=== PATIENT | female | born 1950 | race Caucasian/White ===

== ENCOUNTER → 2017-03-23 | Outpatient (CLI) | payer MEDICARE, OTHER ==
[2017-03-23 08:23] LABS: CREATININE 0.6 mg/dL (0.5-1.1); ESTIMATED GFR (MDRD EQUATION) > 60
== END | disposition disaster alternative care site (69) ==
LOC: GRAD 07:37
PROVIDERS: Otolaryngology
DX: K21.9 Gastro-esophageal reflux disease without esophagitis (principal); R40.20 Unspecified coma
CPT/HCPCS: Q9967

== ENCOUNTER → 2017-04-13 | Outpatient (CLI) | payer MEDICARE, OTHER | END | disposition disaster alternative care site (69) | LOC: GBCOE 09:38 | DX: Z12.31 Encounter for screening mammogram for malignant neoplasm of breast (principal) | CPT/HCPCS: G0202 ==